=== PATIENT | male | born 1990 | race Caucasian/White ===

== ENCOUNTER 2020-01-15 15:01 | Emergency (ER) | payer SELFPAY ==
[2020-01-15 15:03] VITALS: BP 138/98; PULSE 77; RESP 18; TEMP 37.2; O2SAT 98; BMI 40.6
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
--- NOTE | 2020-01-15 15:27 | PC.NURSE ---
JEANETTE vergara speaking to [facility]
--- NOTE | 2020-01-15 15:49 | PC.NURSE ---
Call PD for pt voluntary transport to [facility]
--- NOTE | 2020-01-15 15:50 | PC.NURSE ---
[facility] notified of pt transfer to [facility]
--- NOTE | 2020-01-15 15:58 | PC.NURSE ---
states that pt wants to go home, states that they came in here to get help with his medicine because the ones he is taking isn't working. States he wanted to see Lashawn the child adolescent psychiatrist. [employer] arrived at this time. Aware of this matter. MD present as well. [employer] and myself present in room, talked with pt, pt states he did not tell us he wanted to hurt his self, he just has feelings of overwhelming. States he does not want to hurt his self, and he has no plan. is stating that they just want to see Lashawn here and they dont have insurance for him to go to [facility]. MD at bedside, explained about a hold and if pt is not willing to go we can not let the pt leave out facility without a psychiatrist seeing the pt. Pt states that he wants to leave this facility because he feels that his information was being blasted all over the ER and he feels that this was a Hipp[employer] violation on his information, for his name and birthday being heard by other pts in the ER. Pt and are in agreeable to go to [facility] with [facility] voluntary.
--- NOTE | 2020-01-15 16:20 | PC.NURSE ---
Pt left with [facility]
[2020-01-15 16:21] VITALS: BP 138/98; PULSE 88; RESP 17; TEMP 37.2; O2SAT 100
== END 2020-01-15 16:22 ==
PROVIDERS: Emergency Provider Physician Assistant
DX: R45.851 Suicidal ideations (principal); F32.9 Major depressive disorder, single episode, unspecified
CPT/HCPCS: 99281

== ENCOUNTER → 2020-01-17 15:23 | Outpatient (CLI) | payer MEDICAID, SELFPAY ==
[2020-01-17 15:52] LABS: Chloride 106 mmol/L (98-107); Sodium 140 mmol/L (136-145)
[2020-01-17 15:53] LABS: Potassium 4.2 mmoL/L (3.5-5.1)
[2020-01-17 15:56] LABS: Anion Gap 13.2 mEq/L (5-15); Blood Urea Nitrogen 12 mg/dl (9-20); Calcium 9.6 mg/dl (8.4-10.2); Carbon Dioxide 25 mmol/L (22.0-30.0); Estimated Glomerular Filt Rate 114 ml/min (>60); GFR (African American) 138 ML/MIN (>60); Glucose 101 mg/dl (74-100)
== END ==
PROVIDERS: Visit Provider Family Medicine
DX: F48.9 Nonpsychotic mental disorder, unspecified (principal); Z76.89 Persons encountering health services in other specified circumstances
CPT/HCPCS: 80048

== ENCOUNTER → 2020-03-19 17:59 | Outpatient (CLI) | payer MEDICAID, SELFPAY ==
[2020-03-19 20:34] LABS: Chloride 105 mmol/L (98-107); Potassium 4.4 mmoL/L (3.5-5.1); Sodium 141 mmol/L (136-145)
[2020-03-19 20:37] LABS: Anion Gap 16.4 mEq/L (5-15); Blood Urea Nitrogen 13 mg/dl (9-20); Calcium 9.7 mg/dl (8.4-10.2); Carbon Dioxide 24 mmol/L (22.0-30.0); Estimated Glomerular Filt Rate 100 ml/min (>60); GFR (African American) 121 ML/MIN (>60); Glucose 82 mg/dl (74-100)
[2020-03-22 09:05] LABS: Lithium (Eskalith(R)) 0.1 mmol/L (0.6-1.2)
== END ==
PROVIDERS: Visit Provider Family Medicine
DX: F31.30 Bipolar disorder, current episode depressed, mild or moderate severity, unspecified (principal)
CPT/HCPCS: 80048; 80178

== ENCOUNTER → 2020-09-04 17:37 | Outpatient (CLI) | payer BC, OTHER, SELFPAY | PROVIDERS: Visit Provider Family Medicine | DX: R30.0 Dysuria (principal) | CPT/HCPCS: 87086 ==